=== PATIENT | male | born 1975 | race Caucasian/White ===

== ENCOUNTER 2017-04-09 01:17 | Emergency (ER) | payer OTHER ==
[~2017-04-09] VITALS: Ht 185.4 cm; Wt 89.8 kg
[~2017-04-09 01:17] MED LIST: ADDERALL 20 MG20 MG PO; BACTRIM DS TAB1 EACH PO; CHLORHEXADINE120 M1 TOP; MUPIROCIN15 GM TP; PREVACID15 MG PO; PROAIR HFA8.5 GM IH; ULTRAM 50MG TAB50 MG PO; ZPAK PO
[2017-04-09 01:42] VITALS: BP 133/92
== END 2017-04-09 02:05 | disposition home or self-care (01) ==
LOC: ER 01:17
DX: F90.9 Attention-deficit hyperactivity disorder, unspecified type (principal); F17.210 Nicotine dependence, cigarettes, uncomplicated; F10.99 Alcohol use, unspecified with unspecified alcohol-induced disorder

== ENCOUNTER 2018-10-14 04:52 | Emergency (ER) | payer OTHER ==
[~2018-10-14] VITALS: Ht 182.9 cm; Wt 89.8 kg
[2018-10-14 05:19] LABS: ABSOLUTE NEUTROPHILS 3.2 thou/uL (1.4-8.2); EOSINOPHILS 2.9 % (0.0-3.0); HEMATOCRIT 41.8 % (42.0-52.0); HEMOGLOBIN 14.7 gm/dL (14.0-18.0); LYMPHOCYTES 23.8 % (24.0-44.0); MCH 30.5 pg (26.0-34.0); MCHC 35.3 g/dL (28.0-37.0); MCV 86.4 fL (80.0-100.0); MONOCYTES 10.7 % (1.0-8.0); PLATELET COUNT 340 thou/uL (150-400); POLYS 61.6 % (36.0-66.0); RBC 4.83 mil/uL (4.50-6.00); RDW 13.3 % (10.5-14.5); WBC 5.2 thou/uL (4.0-11.0)
[2018-10-14 05:29] LABS: ANION GAP 13 mmol/L (7-16); BUN 10 mg/dL (7-18); CALCIUM 9.4 mg/dL (8.5-10.1); CHLORIDE 103 mmol/L (98-107); CO2 27 mmol/L (21-32); CREATININE 0.8 mg/dL (0.7-1.3); GLUCOSE 91 mg/dL (74-106); POTASSIUM 3.6 mmol/L (3.5-5.1); SODIUM 143 mmol/L (136-145)
[2018-10-14 05:39] LABS: LIPASE 125 U/L (73-393); SGOT 18 U/L (15-37); SGPT 27 U/L (30-65); TOTAL BILIRUBIN 0.8 mg/dL (<0.1-1.0); TOTAL PROTEIN 7.9 g/dL (6.4-8.2); TROPONIN-I <0.06 ng/mL (<0.06)
[2018-10-14 06:04] LABS: URINE BLOOD NEGATIVE (Negative); URINE COLOR YELLOW; URINE GLUCOSE-RANDOM* NEGATIVE (Negative); URINE KETONES 2+ (Negative); URINE LEUKOCYTES-REFLEX TRACE (Negative); URINE NITRITE-REFLEX NEGATIVE (Negative); URINE PROTEIN (DIPSTICK) TRACE (Negative); URINE SPECIFIC GRAVITY 1.025 (1.005-1.035)
[2018-10-14 06:07] LABS: ICTOTEST (BILI CONFIRMATORY) Negative (Negative); URINE BILIRUBIN NEGATIVE (Negative); URINE CLARITY SL HAZY
[2018-10-14 06:31] VITALS: BP 135/91
--- NOTE | 2018-10-15 18:30 | EKG ---
[address] [place] [address] ELECTROCARDIOGRAM REPORT Name: ROBBIE SCHWAB Room #: DEP Isela#: [id number] ������������������ Admission: 10/14/18 ������������������ Attend Phys: Discharge: 10/14/18 ������������������ Date of : 77 Report #: [id number] ����������������������������������������������������������������� [id number] THIS REPORT FOR: //name// [facility] ED Test Date: 2018-10-14 Test Time: 05:17:50 Pat Name: ROBBIE SCHWAB Department: Room: Gender: [employer] Work[employer]: [place] [id number] : 1975 Requested By: Zeke Berry Order Number: [id number] MD: Anibal Saldaña Measurements Intervals [place] Rate: 67 P: 42 FL: 155 QRS: -14 QRSD: 115 T: 47 QT: 403 QTc: 426 Interpretive Statements Sinus rhythm Nonspecific intraventricular conduction delay Compared to ECG 04/26/2012 21:33:16 no significant changes Electronically Signed On 10-15-2018 18:30:45 CDT by Anibal Saldaña [email or web address] ��������������������������������������������� <ELECTRONICALLY SIGNED> ���������������������������������������� By: Anibal Saldaña MD ��������������������������������������������� 10/15/18 1830 0517 05 Anibal Saldaña MD /CAS
== END 2018-10-14 06:36 | disposition home or self-care (01) ==
LOC: ER 04:52
PROVIDERS: Emergency Medicine
DX: R63.0 Anorexia (principal); R21 Rash and other nonspecific skin eruption; F17.210 Nicotine dependence, cigarettes, uncomplicated

== ENCOUNTER 2019-10-17 18:58 | Emergency (ER) | payer OTHER ==
[~2019-10-17] VITALS: Ht 182.9 cm; Wt 95.3 kg
[2019-10-17 20:57] VITALS: BP 120/68
== END 2019-10-17 21:00 | disposition home or self-care (01) ==
LOC: ER 18:58
DX: S01.01XA Laceration without foreign body of scalp, initial encounter (principal); F17.210 Nicotine dependence, cigarettes, uncomplicated; Z23 Encounter for immunization; W22.8XXA Striking against or struck by other objects, initial encounter; Y93.72 Activity, wrestling; Y92.89 Other specified places as the place of occurrence of the external cause; Y99.8 Other external cause status